=== PATIENT | male | born 1970 | race African-American/Black ===

== ENCOUNTER → 2018-10-01 10:52 | Outpatient (CLI) | payer MEDICARE, SELFPAY ==
[2018-09-28 11:18] VITALS: BMI 31.8
[2018-10-01 11:37] LABS: Absolute Lymphocyte Count 1.18 X10^3/ul (0.83-4.51); Absolute Neutrophil Count 2.1 X10^3/uL (2.0-7.7); Basophil# 0.01 X10^3/uL; Basophil% 0.3 % (0-1); Eosinophil# 0.14 X10^3/uL; Eosinophils% 3.6 % (0-5); Hematocrit 44.2 % (40-54); Hemoglobin 14.3 g/dl (13.0-16.5); Lymphocyte # 1.18 X10^3/ul (4.0); Lymphocyte % 30.2 % (19-41); Mean Corp Hgb Conc 32.4 g/gl (32-36); Mean Corpuscular Hgb 27.9 pg (27.0-32.0); Mean Corpuscular Volume 86.2 fL (80-94); Mean Platelet Vol. 12.4 fl (6.2-12.0); Monocyte% 12.8 % (0-10); Neutrophil # 2.08 X10^3/uL (2.7-7.7); Neutrophil % 53.1 % (47-70); Platelet Count 143 K/mm3 (150-450); RBC Distribution Width CV 13.3 % (11.6-14.6); RBC Distribution Width SD 42.2 fl (35.1-43.9); Red Blood Count 5.13 M/mm3 (4.6-6.2); White Blood Count 3.9 K/mm3 (4.4-11.0)
[2018-10-01 11:38] LABS: POSITIVE COUNT NO; POSITIVE DIFFERENTIAL NO; POSITIVE MORPHOLOGY NO
[2018-10-01 12:04] LABS: AST(SGOT) 15 U/L (15-37); Alanine Aminotransfer ALT/SGPT 21 U/L (16-61); Albumin, Serum 3.8 g/dL (3.2-5.0); Alkaline Phosphatase 63 U/L (45-117); Anion Gap 8 (5-15); BUN 20 mg/dL (7-18); Calcium,Total 8.1 mg/dL (8.5-10.1); Chloride 111 mmol/L (98-107); Cholesterol 172 mg/dL (200); Creatinine, Serum 1.05 mg/dL (0.70-1.30); EST Glomerular Filtration Rate 81 mL/min (>60); Est Glom Filt Rate - Afr Amer 98 mL/min (>60); Globulin 3.9 g/dL (2.2-4.2); Glucose 88 mg/dL (74-106); High Density Lipoprotein 44 mg/dL; Potassium 4.3 mmol/L (3.5-5.1); Protein, Total 7.7 g/dL (6.4-8.2); Sodium Level 143 mmol/L (136-145); Triglycerides 98 mg/dL; Very Low Density Lipoprotein 20 mg/dL (5-40)
--- OUTSIDE RECORDS SUMMARY | 2019-01-03 00:11 | XMS RPT_ITS ---
:1970 Author Organization OH[facility] Care Team Providers Name Role Phone Oleghe, Efewongbe Attending Unavailable Oleghe, Efewongbe Referring Unavailable Oleghe, Efewongbe Attending Unavailable Oleghe, Efewongbe Referring Unavailable Oleghe, Efewongbe Primary Care Unavailable Miguel Graf BLOCK MAKING MACHINE OPERATOR-C Attending Unavailable Oleghe, Efewongbe Referring Unavailable PROBLEMS PROBLEMS DATE TYPE CONDITION / CODE ATTENDING STATUS SOURCE 09/28/2018 Unknown R56.9 - Oleghe, Active [place] Unspecified ewongbe Formerly [facility] convulsions / Hospital R56.9(ICD-10) Repository 09/28/2018 Unknown E66.9 - Obesity, Oleghe, Active [place] unspecified / Efewongbe Formerly [facility] E66.9(ICD-10) Hospital Repository 09/28/2018 Unknown R51 - Headache / Oleghe, Active [place] R51(ICD-10) [facility] Hospital Repository PROCEDURES PROCEDURES No Procedure Records FoundRESULTS RESULTS INTERNAL MEDICINE Observed: 10/30/2018 Status: F Source: [place] OFFICE VISIT 11:23 AM [facility] REPOSITORY [facility] [address] [place] [address] [place] [address] OFFICE VISIT Date of Service: 10/30/18 MR#: [id number] Acct: [id number] Name: BRYNN TAYLOR Rep #: [id number] : 1970 Provider: Miguel Graf NP Age/Sex: 48/M Location: [facility] Status: Signed Intake Vital Signs10/30/18 Body Mass Index (BMI) 31.8 10/30/18 Height 5 ft 11.5 in Intake Visit Reasons: 1 M FU, PT R/S FROM 10/26/18 Chief Complaint: f/u visit Is patient in pain?: No Allergies No Known Allergies Allergy (Verified 09/28/18 11:13) Medications sumatriptan 25 mg tablet See Rx Instructions PO .COMPLEX #9 tab 09/28/18 [Rx Confirmed 09/28/18] tizanidine 2 mg capsule 2 mg PO TID PRN #30 cap 09/28/18 [Rx Confirmed 09/28/18] benzonatate 100 mg capsule 100 mg PO TID PRN #20 cap 10/30/18 [Rx Confirmed 10/30/18] codeine 10 mg-guaifenesin 100 mg/5 mL oral liquid See Rx Instructions PO Q6H PRN #120 ml 10/30/18 [Rx Confirmed 10/30/18] fluticasone 50 mcg/actuation nasal spray,suspension 2 spray INTRANASAL DAILY #15.8 g 10/30/18 [Rx Confirmed 10/30/18] nicotine 14 mg/24 hr daily transdermal patch 14 mg TRANSDERMAL QDAY #42 patch 10/30/18 [Rx Confirmed 10/30/18] nicotine 7 mg/24 hr daily transdermal patch 1 patch TRANSDERMAL Q24H #14 patch 10/30/18 [Rx Confirmed 10/30/18] PFSH Medical History Sleep apnea (Chronic) Seizures (Chronic) Chronic headaches (Chronic) Surgical History History of hand surgery (Acute) History of right knee surgery (Acute) Family History Father Sudden cardiac Mother Breast cancer Sister Kidney disease Social History Smoking Status: Current some day smoker alcohol intake: never substance use type: does not use what type of physical activity do you participate in: walking frequency: daily duration: > 90 minutes/day HPI HPI Chief Complaint: f/u visit Details: BRYNN TAYLOR, is a 48 M who presents to the office today for follow-up of his blood work and his chronic back pain, however he has some acute concerns of cold-like symptoms. He has a past medical history as listed above. The patient states that since his last office visit when he was started on the tizanidine for his chronic back pain, that this has helped and that he is tolerating the medication well. He states that his pain is controlled at this time. He has a 1/2 pack/day smoker times 20 years and is interested in smoking cessation. He has tried cold turkey in the past without much luck. He does bring up acute concerns of productive cough of yellow sputum, and nasal congestion. The symptoms have been going on for approximately 4 days and have been persisting. He has taken [id number] cough drops with mild relief. Denies any exposure to sick contacts. Denies any other aggravating or relieving factors. He otherwise denies any fever, chills, nausea, vomiting, shortness of breath, chest pain or pressure, syncope or presyncopal episodes. ROS Const Constitutional: No weight change, body ache, chills, fatigue, sleep problems, fever(s), change in appetite, snoring, weakness, frequent falls, headache(s) or excessive sweating Eyes Eyes: No change in vision, eye pain, light sensitivity or blurry vision ENT ENT: Positive for nasal congestion and nasal discharge; no headache(s), abnormal hearing, ear pain, tinnitus, sore throat or neck pain Resp Respiratory: Positive for cough Cough: Yes productive; no snoring, shortness of breath or wheezing Cardio Cardiology: No excessive sweating, chest pain at rest, chest pain with exertion, shortness of breath, dyspnea on exertion, palpitations, orthopnea or lightheadedness Gastro GI: No abdominal pain, change in bowel habits, constipation, diarrhea, vomiting, nausea/dyspepsia or cramping Genitourinary Male: No painful urination, urinary incontinence, urinary frequency, urinary urgency, blood in urine, testicle pain or other Musc Musculoskeletal: No neck pain, abnormal walking, joint pain, back pain, limited range of motion, numbness or tingling Skin Skin: No redness, dry skin, itching, lesions, wounds or rash Neuro Neurology: No weakness, frequent falls, headache(s), abnormal hearing, abnormal walking, numbness, tingling, abnormal speech, dizziness or memory loss Psych Psychiatric: No change in appetite, No memory loss, No anxiety, No depression, No Thoughts of harming yourself/Others Endo Endocrine: No fatigue, excessive sweating, cold intolerance, increased thirst/drinking, heat intolerance, flushing or increased hunger Aller/Imm Allergy/Immunologic: No wheezing, itchy eyes, hives or seasonal allergy symptoms Thomas/Lymp Hematologic/Lymphatic: No easy bleeding, easy bruising or enlarged lymph nodes Exam Const General: cooperative, no acute distress Orientation: alert, awake, oriented x3 HENMT Head: atraumatic, normocephalic, normal to inspection Ears: hearing grossly normal bilaterally, TM's normal bilaterally Nose: external nose normal, mucous membranes and turbinates abnormal (edematous bilaterally) pale, nasal discharge clear bilaterally Face and sinus: normal facial exam Mouth: oral mucosae normal Throat: posterior oropharynx normal Neck Neck: no lymphadenopathy Resp Effort AND Inspection: normal respiratory effort, able to speak in complete sentences Auscultation: Bilateral: Clear to Auscultation Cardio Rate: regular rate Rhythm: regular rhythm Heart Sounds: S1 normal, S2 normal GI Palpation: soft, no hepatosplenomegaly Musc Thoracic/Lumbar Spine: straight leg raise negative bilaterally, paraspinal tenderness Neuro General: awake, alert, oriented x3, moves all extremities, CN's II-XI intact bilaterally Psych Appearance: grossly normal Mood: congruent mood Affect: normal affect Office Procedures Smoking Cessation Smoking Cessation A 6 minute, face to face discussion occurred with the patient regarding smoking cessation. Risks of continued tobacco abuse was covered such as heart disease, stroke, cancer, and emphysema, among others. The many health benefits quitting, was discussed and the patient was educated on the fact that smokers lose an average of 10 minutes of life for every cigarette smoked. We discussed the pathophysiology of smoking addiction and its dual addictive components of nicotine addiction and psychological addiction. Nicotine replacement was discussed. We also talked about medications that may be helpful such as Bupropion (Wellbutrin) or Varenicline (Chantix). Advise was also offered on preoccupying the mind during trigger times with activities such as chewing gum, sucking on hard candy or utilizing their hands with an activity such as drawing. Currently the patient is smoking 1/2 ppd. At this time, BRYNN elects to trial the nicotine replacement patch. We will continue to monitor the tobacco abuse and encourage cessation. You may call the free hotline 7-460-OPYT-NOW. People who use this line are THREE times more likely to remain smoke free. Time Spent 3-10 minutes: Yes greater than 10 minutes: No Assessment AND Plan 1. URI (upper respiratory infection) J06.9 Plan Symptoms seem to be viral in nature at this time. Will treat supportively. Ailyn called in the be taken during the day for cough and cough syrup with codeine to be taken as needed at night, since his cough is keeping him awake at night. Discussed not to drive while on the medication or to mix this with his muscle relaxant. OARRS was verified and demonstrates no red flags that would indicate abuse or diversion. Flonase was also called to his pharmacy as well. Educated on rest, increasing fluids, and hand hygiene 2. Chronic back pain M54.9; G89.29 Plan Said to have improved since starting the tizanidine. If worsens in the future may need a physical therapy referral. 3. Tobacco abuse Z72.0 Plan See above procedure note, patient was started on the nicotine replacement patch. Instructed not to smoke while on the patch. Educated on red flag signs and symptoms of nicotine toxicity that require urgent medical attention. Patient verbalized understanding. Davidon disclaimer Plan Detail Other Medications New: fluticasone 50 mcg/actuation (Flonase Allergy Re2 sprays Intranasal DAILY 15.8 grams 1RF lief) administer into each nostril Follow Up 2 months or sooner if need Coding Level of Care Code Off vis,est,level 3 Diagnoses URI (upper respiratory infection) J06.9 Chronic back pain M54.9; G89.29 Tobacco abuse Z72.0 Additional Codes Time Spent - 3-10 minutes: Yes (87277) 10/30/18 1123 <Electronically signed by Miguel SINGH> Date Migule SINGH Cosigner Signature: Date (if applicable) CC: INTERNAL MEDICINE Observed: 10/03/2018 Status: F Source: [place] OFFICE VISIT 4:59 PM [facility] [address] [place] [address] [place] [address] OFFICE VISIT Date of Service: 09/28/18 MR#: [id number] Acct: [id number] Name: BRYNN TAYLOR Rep #: [id number] : 1970 Provider: Gretta Perez MD Age/Sex: 48/M Location: [facility] Status: Signed Intake Vital Signs09/28/18 Height 5 ft 11.5 in 09/28/18 Weight: 232 lb 09/28/18 Body Mass Index (BMI) 31.8 09/28/18 Blood Pressure 116/77 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 Chief Complaint: Est Care - Check up Allergies No Known Allergies Allergy (Verified 09/28/18 11:13) Medications sumatriptan 25 mg tablet See Rx Instructions PO .COMPLEX #9 tab 09/28/18 [Rx Confirmed 09/28/18] tizanidine 2 mg capsule 2 mg PO TID PRN #30 cap 09/28/18 [Rx Confirmed 09/28/18] PFSH Medical History Seizures (Chronic) Chronic headaches (Chronic) Surgical History History of hand surgery (Acute) History of right knee surgery (Acute) Family History Father Sudden cardiac Mother Breast cancer Sister Kidney disease Social History Smoking Status: Current some day smoker alcohol intake: never substance use type: does not use what type of physical activity do you participate in: walking frequency: daily duration: > 90 minutes/day HPI HPI Chief Complaint: Est Care - Check up Details: BRYNN TAYLOR, is a 48yo M who presents to the office today to establish care. Poor historian and not very clear on his past medical history however, it appears he has chronic history of seizures with last episode being about 2 years ago and chronic/recurrent headaches for which he has been hospitalized on several occasions. He also reports a history of chronic back pain for which he was also hospitalized at [facility]. His main concerns at this time is his chronic headaches and back pain. Headaches are said to be sharp, one-sided and could linger for as long as 3-4 days. Worsened by light and sound. Again he is not clear about prior prescriptions but appears that he was prescribed triptan's in the past. No significant response with Tylenol or ibuprofen. Also reports chronic back pain and appears to have had a flareup lately. No change in bowel or bladder habit. No falls. ROS Const Constitutional: Positive for headache(s) (Severe - lasts several days); no chills, fatigue, fever(s), frequent falls, malaise, weakness, sleep problems or change in appetite Eyes Eyes: No blurry vision, change in vision, double vision, discharge or visual disturbances ENT ENT: Positive for headache(s) (Severe - lasts several days); no abnormal hearing, ear pain, ear pressure, tinnitus or dizziness/vertigo Resp Respiratory: No shortness of breath or wheezing Cardio Cardiology: No chest pain at rest, chest pain with exertion, shortness of breath, dyspnea on exertion, generalized swelling, irregular heart rhythm, lightheadedness, orthopnea, fast heart rate or palpitations Gastro GI: No abdominal pain, change in bowel habits, constipation, diarrhea, nausea/dyspepsia or vomiting Genitourinary Male: No difficulty urinating, burning urination, painful urination, urinary incontinence, urinary frequency, urinary urgency, urinary hesitancy, urinary retention, blood in urine, Frequent nighttime urination/ nocturia, sexual problems, testicle lump or testicle pain Musc Musculoskeletal: Positive for back pain; no joint swelling, limited range of motion, numbness or tingling Skin Skin: No change in skin color, itching, rash or wounds Breast Breast: No breast lump or breast pain Neuro Neurology: Positive for headache(s) (Severe - lasts several days); no frequent falls, weakness, abnormal hearing, numbness, tingling, unsteady gait/balance, dizziness, loss of vision, memory loss or visual disturbances Psych Psychiatric: No memory loss, No anxiety, No change in appetite, No depression, No Thoughts of harming yourself/Others Endo Endocrine: No fatigue, heat intolerance, increased thirst/drinking, increased hunger or increased urination Aller/Imm Allergy/Immunologic: No wheezing, itchy eyes or seasonal allergy symptoms Thomas/Lymp Hematologic/Lymphatic: No easy bleeding, easy bruising or enlarged lymph nodes Exam Const General: cooperative, no acute distress Orientation: alert, awake, oriented x3 HENMT Head: atraumatic, normocephalic Ears: hearing grossly normal bilaterally Resp Effort AND Inspection: normal respiratory effort, able to speak in complete sentences Auscultation: Bilateral: Clear to Auscultation Cardio Rate: regular rate Rhythm: regular rhythm Heart Sounds: S1 normal, S2 normal GI Palpation: soft, no hepatosplenomegaly Musc Thoracic/Lumbar Spine: straight leg raise negative bilaterally, paraspinal tenderness Neuro General: awake, alert, oriented x3, moves all extremities, CN's II-XI intact bilaterally Psych Appearance: grossly normal Mood: congruent mood Affect: normal affect Assessment AND Plan 1. Chronic headaches R51 Plan Appears to have had worsening episodes lately. Might benefit from migraine prophylaxis however will obtain records from [facility]. Continue NSAIDs as needed. Prescription for sumatriptan sent. Follow-up in 1 month. Orders Orders: 2. Chronic back pain M54.9; G89.29 Plan Acute on chronic. Paraspinal muscle tenderness. Prescription for tizanidine sent. If no significant improvement at next visit, will refer to physical therapy. 3. Seizures R56.9 Plan Per patient, his last episode was 2 years ago. Unclear about history. Records requested. Orders Orders: 4. Obesity (BMI 30.0-34.9) E66.9 Plan Lipid profile ordered. Lifestyle and dietary modifications recommended. Readdress at next visit. This note was generated with Kanmu dictation software. It may contain incorrect words, spelling, and punctuation that were not noted in checking the note before signing. Orders Orders: Plan Detail Other Medications New: sumatriptan take 1 tab at onset of headache; if no relief may repeat 1 tab in 2hr; max = 4 tabs/day (24hr) PO 9 tabs 0RF Coding Level of Care Code Off vis,new,level 4 Diagnoses Chronic headaches R51 Chronic back pain M54.9; G89.29 Seizures R56.9 Obesity (BMI 30.0-34.9) E66.9 10/03/18 4315 <Electronically signed by Gretta Perez MD> Date Gretta Perez MD Cosigner Signature: Date (if applicable) CC: CBC W/DIFF, AUTOMATED Collected: 10/01/2018 Status: F Source: [place] 11:03 AM [facility] REPOSITORY TYPE CODE TESTS RESULT OUT OF RANGE REFERENCE UNITS LAB L100.1000 4.4-11.0 K/mm3 Low WBC 3.9 LAB L100.1200 4.6-6.2 M/mm3 Normal RBC 5.13 LAB L100.1300 13.0-16.5 g/dl Normal HGB 14.3 LAB L100.1400 40-54 % Normal HCT 44.2 LAB L100.1500 80-94 fL Normal MCV 86.2 LAB L100.1600 27.0-32.0 pg Normal MCH 27.9 LAB L100.1700 32-36 g/gl Normal MCHC 32.4 LAB L100.1810 11.6-14.6 % Normal RDW CV 13.3 LAB L100.1820 35.1-43.9 fl Normal RDW SD 42.2 LAB L100.1900 150-450 K/mm3 Low PLT 143 LAB L100.2000 6.2-12.0 fl High MPV 12.4 LAB L100.2100 47-70 % Normal NEUT% 53.1 LAB L100.2200 19-41 % Normal LY% 30.2 LAB L100.2300 0-10 % High MONO% 12.8 LAB L100.2400 0-5 % Normal EO% 3.6 LAB L100.2500 0-1 % Normal BASO% 0.3 LAB L100.2550 0.0-0.9 % Normal IM GRAN % 0.000 Result Comment: IG% - Immature Granulocytes (promyelocytes, myelocytes and metamyelocytes) > 1% indicates that a LEFT SHIFT is Present. LAB L100.2620 2.0-7.7 X10 3/uL Normal Absolute Neut 2.1 LAB L100.2720 0.83-4.51 X10 3/ul Normal Absolute Lymph 1.18 Performed By: #### L100.0100 #### [place] [facility] [address] [place], [address] COMPREHENSIVE METABOLIC Collected: 10/01/2018 Status: F Source: [place] [facility] 11:03 AM [facility] REPOSITORY Order Comment: Comments: Fasting Comments: Fasting TYPE CODE TESTS RESULT OUT OF RANGE REFERENCE UNITS LAB L501.0100 74-106 mg/dL Normal GLU 88 Result Comment: Please note revised GLUCOSE reference range effective 2017. LAB L501.1000 7-18 mg/dL High BUN 20 LAB L501.1100 0.70-1.30 mg/dL Normal CREAT,SERUM 1.05 Result Comment: The validity of the calculated GFR AND GFRAA in patients over 70 years has not been determined. Clinical correlation is essential. LAB L501.1110 >60 mL/min Normal EST GFR 81 Result Comment: Non- GFR Calc LAB L501.1115 >60 mL/min Normal EST GFR - AA 98 Result Comment: GFR Calc LAB L501.1300 10-20 RATIO Normal BUN/CRE 19.0 LAB L501.1500 6.4-8.2 g/dL T Normal PROT 7.7 LAB L501.1800 3.2-5.0 g/dL Normal ALB 3.8 LAB L501.1950 2.2-4.2 g/dL Normal GLOB 3.9 LAB L501.2000 0.9-2.4 RATIO Normal A/G 1.0 LAB L501.2200 8.5-10.1 mg/dL Low CA 8.1 LAB L501.4100 15-37 U/L Normal AST 15 LAB L501.4305 45-117 U/L Normal ALK P 63 LAB L501.4405 16-61 U/L Normal ALT 21 LAB L501.4600 0.20-1.00 mg/dL T Normal BILI 0.20 LAB L501.5300 136-145 mmol/L NA Normal 143 LAB L501.5600 3.5-5.1 mmol/L K Normal 4.3 LAB L501.5900 98-107 mmol/L High CL 111 LAB L501.6100 21.0-32.0 mmol/L Normal CO2 24.0 LAB L501.6200 5-15 Normal GAP 8 Performed By: #### L500.4050, L500.4100 #### [facility] [address] [place], [address] LIPID PROFILE Collected: 10/01/2018 Status: F Source: [place] 11:03 AM [facility] REPOSITORY Order Comment: Comments: Fasting Comments: Fasting TYPE CODE TESTS RESULT OUT OF RANGE REFERENCE UNITS LAB L501.4900 200 mg/dL Normal CHOL 172 Result Comment: <200 mg/dL Desirable 200-240 mg/dL Borderline >240 mg/dL High Risk LAB L501.5000 mg/dL Normal TRIG 98 Result Comment: The drugs N-Acetylcysteine and Metamizole may falsely depress this assay. Serum Triglycerides Reference Interval Normal <150 mg/dL Borderline high 150 - 199 mg/dL High 200 - 499 mg/dL Very High > or = 500 mg/dL LAB L501.6400 mg/dL Normal HDL 44 Result Comment: The drugs N-Acetylcysteine and Metamizole may falsely depress this assay. Reference Range HDL <40 mg/dL Low HDL Cholesterol HDL >or= 60 mg/dL High HDL Cholesterol LAB L501.6500 0-130 mg/dL Normal LDL 108 LAB L501.6600 5-40 mg/dL Normal VLDL 20 Performed By: #### L500.4050, L500.4100 #### [facility] [address] [place], [address] ALLERGIES ALLERGIES DATE TYPE / CODE NAME / CODE REACTION SEVERITY SOURCE 09/28/2018 Drug No Known Unknown [facility] Allergy/4160 Allergies/F00 Hospital 67502(SNOMED [id number](RXNOR Repository CT) M) ENCOUNTERS ENCOUNTERS ADMIT/DISCHARGE ACCOUNT ADMITTING ENCOUNTER LOCATION SOURCE NUMBER CLASS 10/30/2018/ [id number] Ambulatory BMSBuilding:B [place] 9 6 [facility] Repository 10/01/2018 [id number] Ambulatory [place] 5 [facility] ing:LAB Repository 09/28/2018/ [id number] Ambulatory BMSBuilding:B [place] 8 0 [facility] Repository PAYERS PAYERS ENCOUNTER GUARANTOR PAYER SUBSCRIBER SOURCE 10/30/2018 BRYNN Heath Primary BRYNN [place] [id number] Insurance:MEDICARE OCHELATADOB: [facility] PART A [id number] Number: Repository [id number]: 330 [id number] [phone] () Date:2018-09-28 10/30/2018 Secondary NOT GIVENUNK [place] Insurance:SELF PAY [facility] Number: Effective Repository Date:2018-10-18 10/01/2018 BRYNN L Primary BRYNN L [place] [id number] Insurance:MEDICARE PALMERDOB: Community [place] PART A [facility] [id number] Number: Repository [address]Fhq: 330 [id number] [phone] () Date:2018-10-01 10/01/2018 Secondary NOT GIVENUNK [place] Insurance:SELF PAY [facility] Number: Effective Repository Date:2018-10-01 09/28/2018 BRYNN L Primary BRYNN L [place] [id number] Insurance:MEDICARE PALMERDOB: Community [place]GA [place] PART A [facility] [id number] Number: Repository [id number]: 330 [id number] [phone] () Date:2018-08-28 09/28/2018 Secondary NOT GIVENUNK [place] Insurance:SELF PAY [facility] Number: Effective Repository Date:2018-09-27
== END ==
PROVIDERS: Family Provider Internal Medicine; PCP Internal Medicine; Referring Provider Internal Medicine; Visit Provider Internal Medicine
DX: R56.9 Unspecified convulsions (principal); R51 Headache; G89.29 Other chronic pain; E66.9 Obesity, unspecified
CPT/HCPCS: 36415; 80053; 80061; 85025

== ENCOUNTER → 2019-11-15 06:25 | Outpatient (CLI) | payer MEDICARE, SELFPAY ==
[2019-11-05 14:05] VITALS: BMI 31.8
--- NOTE | 2019-11-15 06:29 | MRI_ITS ---
STUDY: MRI BRAIN WITH AND WITHOUT CONTRAST REASON FOR EXAM: Male, 49 years old. worsening daily headaches, no relief with medication PT VOMITED AFTER INJECTION TECHNIQUE: Standardized multiplanar fat and water weighted pulse sequences were obtained. IV 23cc dotarem was administered for the contrast portion of the examination. COMPARISON: None. FINDINGS: Normal size of the ventricles and extra-axial spaces for the patient''s age. Normal white matter tracts of the supratentorial brain. There is no evidence for recent intracranial ischemia or other cause of cytotoxic edema on diffusion weighted imaging (DWI). Normal T2* images of the brain without demonstrated susceptibility artifact. There is no demonstrated hemosiderin stain. There are no demyelinating plagues of the supratentorial brain, brainstem or cerebellum. There are no findings suspicious for multiple sclerosis (MS). No demonstrated hydrocephalus. No midline shift. Normal bilateral basal ganglia. Normal thalami. There is no extra-axial fluid accumulation. Normal flow voids within the major intracranial circulation suggesting patency by spin echo criteria. Normal venous enhancement. There is no enhancing intra-axial or extra-axial abnormality. Normal sella turcica, pituitary gland, infundibular stalk, optic chiasm and hypothalamus. Normal tectal plate and pineal gland. Normal midbrain, natalio and medulla. Normal cerebellum. Normal basal cisterns. Normal bilateral temporal bones. Normal bilateral internal auditory canals. No demonstrated orbital abnormality, within the constraints of a routine brain study. There is mild mucosal thickening in the bilateral frontal and ethmoid sinuses. Normal calvarium and skull base. Normal visualized soft tissue structures. Normal visualized upper cervical spine. MRI/Brain W/WO Contrast IMPRESSION: 1. Normal unenhanced and enhanced MRI of the brain. 2. Mild mucosal thickening of the bilateral frontal and ethmoid sinuses. Electronically Signed: Reilly Voss MD at 19:07 EST , Service support ,
== END ==
LOC: MRI 06:29
PROVIDERS: PCP Internal Medicine; Referring Provider Internal Medicine; Visit Provider Internal Medicine
DX: G43.909 Migraine, unspecified, not intractable, without status migrainosus (principal)
CPT/HCPCS: 70553

== ENCOUNTER → 2019-11-22 11:15 | Outpatient (CLI) | payer MEDICARE, SELFPAY ==
[2019-11-21 13:58] VITALS: BMI 34.4
[2019-11-22 11:41] LABS: Hematocrit 44.9 % (40-54); Hemoglobin 14.5 g/dL (13.0-16.5); Mean Corp Hgb Conc 32.3 g/dL (32-36); Mean Corpuscular Hgb 27.8 pg (27.0-32.0); Mean Platelet Vol. 12.2 fl (6.2-12.0); Platelet Count 165 K/mm3 (150-450); RBC Distribution Width CV 13.1 % (11.6-14.6); RBC Distribution Width SD 40.5 fl (35.1-43.9); Red Blood Count 5.22 M/mm3 (4.6-6.2); White Blood Count 4.8 K/mm3 (4.4-11.0)
[2019-11-22 12:31] LABS: ALB/GLOB Ratio 1.1 RATIO (0.9-2.4); AST(SGOT) 16 U/L (15-37); Alanine Aminotransfer ALT/SGPT 26 U/L (16-61); Albumin, Serum 4.1 g/dL (3.2-5.0); Alkaline Phosphatase 77 U/L (45-117); Anion Gap 6 (5-15); BUN 17 mg/dL (7-18); BUN/Creat Ratio 13.5 RATIO (10-20); Calcium,Total 8.7 mg/dL (8.5-10.1); Chloride 111 mmol/L (98-107); Creatinine, Serum 1.26 mg/dL (0.70-1.30); EST Glomerular Filtration Rate 65 mL/min (>60); Est Glom Filt Rate - Afr Amer 79 mL/min (>60); Globulin 3.9 g/dL (2.2-4.2); Glucose 94 mg/dL (74-106); Potassium 3.8 mmol/L (3.5-5.1); Sodium Level 139 mmol/L (136-145); Thyroid Stim Hormone (TSH) 1.08 uIU/mL (0.358-3.74)
== END ==
PROVIDERS: PCP Internal Medicine; Referring Provider Psychiatry & Neurology Neurology; Visit Provider Psychiatry & Neurology Neurology
DX: G43.909 Migraine, unspecified, not intractable, without status migrainosus (principal); R53.83 Other fatigue
CPT/HCPCS: 36415; 80053; 84443; 85027

== ENCOUNTER → 2019-12-18 06:49 | Outpatient (CLI) | payer MEDICARE, SELFPAY ==
[2019-12-05 13:46] VITALS: BMI 34.4
--- NOTE | 2019-12-18 13:25 | STRESSREP ---
Stress Test Report Date: 12/18/2019 Procedure: Exercise tolerance test/imaging study Indications: Chest pain, family history of CAD Consent: Per the patient Procedure: The patient exercised on a Silas protocol for 9 minutes achieving a peak heart rate of 166 bpm (95 % predicted maximal heart rate) with a peak blood pressure 170/74 mmHg and a peak MET capacity of 10.1 METs. The baseline ECG demonstrated normal sinus rhythm. The peak exercise ECG demonstrated no significant ischemic changes. EKG during recovery revealed no significant ischemic changes [There were no difficult cardiac dysrhythmias pretest, during exercise, or recovery]. Patient had occasional PVCs. The functional capacity was considered normal for age. Patient had 5/10 chest pain at rest that did not change with exertion. The examination was discontinued secondary to achieving target heart rate. Impression: 1. Technically adequate (percent predicted maximal heart rate greater than 85%) exercise tolerance test 2. Stress test is negative for exercise-induced EKG changes of ischemia 3. The test test is negative for exercise-induced chest pain. He had 5/10 chest pain at baseline that did not change with exercise. 4. Functional capacity is normal for age 5. Nuclear images pending Myocardial perfusion imaging study: Technique: The patient was injected with 11.1 mCi of technetium 99m Cardiolite and subsequently rest SPECT Cardiolite nuclear imaging was obtained in the horizontal long, vertical long, and short axis views. The patient exercised on a Silas protocol. Please see above for details. The patient was injected with 33.9 mCi of technetium 99m Cardiolite and subsequently stress SPECT Cardiolite nuclear imaging was obtained in the horizontal long, vertical long, and short axis views. A gated Cardiolite study at peak stress was obtained. Interpretation: Rest and stress SPECT Cardiolite nuclear imaging status post realignment, normalization, and attenuation correction, demonstrates overall normal myocardial radioisotope uptake. The gated Cardiolite study demonstrates no significant regional wall motion abnormalities. The reported LVEF is 56 %. Impression: 1. There is no evidence of significant ischemia or infarction. 2. The gated Cardiolite study reports an LVEF of 56 %. This note was generated with [employer] software. It may contain incorrect words, spelling, and punctuation that were not noted in checking the note before signing.
== END ==
LOC: CVS 06:50
PROVIDERS: PCP Internal Medicine; Referring Provider Internal Medicine; Visit Provider Internal Medicine
DX: R07.9 Chest pain, unspecified (principal); R94.31 Abnormal electrocardiogram [ECG] [EKG]; Z82.49 Family history of ischemic heart disease and other diseases of the circulatory system
CPT/HCPCS: 78452; 93017; A9500; A4216

== ENCOUNTER → 2020-04-06 20:00 | Outpatient (CLI) | payer MEDICARE, SELFPAY ==
[2020-03-13 09:56] VITALS: BMI 31.8
== END ==
PROVIDERS: PCP Internal Medicine; Visit Provider Internal Medicine
DX: G47.33 Obstructive sleep apnea (adult) (pediatric) (principal)
CPT/HCPCS: 95810

== ENCOUNTER 2021-06-30 12:42 | Emergency (ER) | payer SELFPAY ==
[2021-06-30 12:46] VITALS: BP 121/85; PULSE 75; RESP 16; TEMP 36.3; O2SAT 97; BMI 34.6
== END 2021-06-30 16:05 | disposition left against medical advice (07) ==
LOC: ED 16:05
PROVIDERS: PCP Internal Medicine
DX: R69 Illness, unspecified (principal); Z53.21 Procedure and treatment not carried out due to patient leaving prior to being seen by health care provider

== ENCOUNTER 2022-01-08 13:04 | Emergency (ER) | payer SELFPAY ==
[2022-01-08 13:06] VITALS: BP 139/76; PULSE 69; RESP 14; TEMP 35.7; O2SAT 100; BMI 37.8
--- NOTE | 2022-01-08 13:33 | EX.ED.DYSGE1 ---
HPI History of Present Illness Chief Complaint: Nausea/Vomiting Detail of Chief Complaint: Vomiting and hematemesis Informant: patient Narrative Narrative: Patient presents to the emergency department with vomiting that started this morning. Patient states that he vomited about half hour after waking up and then vomited a second time. Patient drank some orange juice and 20 minutes later vomited again and there was small amount of blood within the vomitus. He complains of some abdominal discomfort. Patient states he had about 4 episodes of watery diarrhea yesterday. He denies sick contacts. He denies fever. Patient also states that he has a pressure sensation in his right ear with a swishing sound that he hears at times. This started today. Prior similar symptoms: No [facility] Medical History (Updated 01/08/22 @ 15:[address] Erik Swain, ) Chronic headaches Seizures Sleep apnea Home Medications fluticasone propionate 50 mcg/actuation nasal spray,suspension 2 spray INTRANASAL DAILY #15.8 g 07/10/19 [Rx Last Taken Unknown] loratadine 10 mg tablet 10 mg PO DAILY PRN #90 tab 07/10/19 [Rx Last Taken Unknown] montelukast 10 mg tablet 10 mg PO QPM #90 tab 07/10/19 [Rx Last Taken Unknown] tizanidine 4 mg tablet See Rx Instructions PO QHS PRN #90 tab 11/21/19 [Rx Last Taken Unknown] sertraline 100 mg tablet 100 mg PO DAILY #90 tab 12/05/19 [Rx Last Taken Unknown] arm brace #1 ea 01/02/20 [Rx Last Taken Unknown] colchicine 0.6 mg capsule 0.6 mg PO BID 03/13/20 [History Last Taken Unknown] sumatriptan succinate 25 mg tablet See Rx Instructions PO .COMPLEX #9 tab 04/21/20 [Rx Last Taken Unknown] ibuprofen 800 mg tablet 800 mg PO TID PRN #90 tab 08/11/20 [Rx Last Taken Unknown] ondansetron HCl 4 mg tablet 4 mg PO TID PRN #90 tab 08/11/20 [Rx Last Taken Unknown] topiramate 50 mg tablet 50 mg PO BID #60 tab 08/11/20 [Rx Last Taken Unknown] ondansetron 4 mg PO Q8H PRN PRN #10 tab 01/08/22 [Rx Last Taken Unknown] Allergy/AdvReac Type Severity Reaction Status Date / Time Gadolinium-MRI Contrast AdvReac Vomiting Verified 01/08/22 13:06 Medium Family History Father Sudden cardiac Mother Breast cancer Sister Kidney disease Grandmother Alcoholism Other Cervical cancer Colon cancer Surgical History History of hand surgery History of right knee surgery Social History (Updated 08/11/20 @ 10:[address] Tristan Lozoya MD) Smoking Status: Current some day smoker tobacco type: cigarettes alcohol intake: never substance use type: does not use what type of physical activity do you participate in: walking frequency: daily duration: > 90 minutes/day ROS ROS ED Constitutional Constitutional ED: Reports systems reviewed and no addt'l complaints, except as documented; Denies body ache(s), change in weight or chills Eyes Eyes: Denies acute decrease in peripheral vision, change in vision, double vision or loss of vision ENT ENT ED: Reports none and ear pain; Denies lip swelling, loss taste/smell, neck pain, otalgia or sore throat Cardiovascular Cardiovascular: Reports none; Denies abdominal pain, chest pain with activity, leg edema, lightheadedness, palpitations, rapid heart rate or syncope Respiratory/Chest Respiratory/Chest: Reports none; Denies change in mental status, dry cough, dyspnea, hemoptysis, shortness of breath at rest or shortness of breath with exertion Gastrointestinal Gastrointestinal: Reports none, abdominal pain, diarrhea, nausea and vomiting; Denies change in stool character, hematemesis, hematochezia, melena or rectal bleeding Genitourinary Genitourinary ED: Reports none; Denies abdominal discomfort, anuria, dysuria, genital pain or polyuria Musculoskeletal Musculoskeletal: Reports none; Denies arthralgias, back pain, difficulty walking, extremity pain, muscle weakness or myalgias Integumentary Reports none; Denies abscess or rash Neurologic Neurologic: Reports none; Denies abnormal gait, confusion, focal weakness, frequent falls, headache(s), loss of vision, numbness, paresthesias, radicular pain, vertigo or weakness Psychiatric Psychiatric: Reports systems reviewed and no addt'l complaints, except as documented and none; Denies behavioral changes, confusion, difficulty concentrating, hallucinations, suicidal ideation, tactile hallucinations or visual hallucinations Endocrine Endocrinology: Denies none, cold intolerance, excessive sweating, fatigue or heat intolerance Hematologic/Lymphatic Hematologic/Lymphatic: Reports none; Denies anemia, easy bleeding or easy bruising Allergic/Immunologic Allergic/Immunologic ED: Denies as per HPI, none, lip swelling, mouth swelling, throat swelling, tongue swelling or hives EXAM Physical Exam Const Vital Signs: 01/08/22 13:06 Temperature 96.3 F L Temperature Source Temporal Pulse Rate 69 Respiratory Rate 14 Blood Pressure 139/76 H Blood Pressure Mean 97 Pulse Ox 100 Oxygen Delivery Method Room Air Positive well nourished and well developed General Appearance ED: well developed and NAD HEENT Reports TM's clear and moist mucous membranes normocephalic and atraumatic; Negative for trauma or tenderness Tympanic Membrane ED: Yes TM's clear Eyes PERRL and EOMs intact bilaterally General Eye ED: Negative for pale conjunctiva or scleral icterus Neck no lymphadenopathy, supple and no JVD General: Negative for tenderness Chest Wall inspection of chest normal and palpation of chest normal Chest: Negative for tenderness Resp normal respiratory effort and clear to auscultation bilaterally Effort and Inspection: Negative for respiratory distress or pain with movement Auscultation: Negative for rhonchi, wheezes or diminished lung sounds Cardio regular rate, regular rhythm, S1 normal heart sound, S2 normal heart sound and no murmurs Peripheral Pulses: pulses 2+ throughout GI normal to inspection, nondistended, normoactive bowel sounds, soft to palpation, non-distended and no masses GI Narrative: Normoactive bowel sounds. Mild diffuse tenderness. No rebound, rigidity, or peritoneal signs. Back/Spine no CVA tenderness and no thoracic nor lumbar tenderness Extremity normal to inspection General Extremety ED: Negative for edema General Extremity: Negative for edema Neuro oriented x3, CN's II-XII intact bilaterally, no sensory deficits noted and gait normal Sensorium / Orientation: awake, alert, oriented to person, oriented to place and oriented to time Motor Exam: strength 5/5 throughout and strength abnormal Psych mental status grossly normal Skin no rashes or lesions noted and no wounds MDM MDM MDM Narrative Medical decision making narrative: IV line established on arrival. Patient was given normal saline. He was given Zofran 4 mg IV. Lab work-up was essentially normal. At this point I suspect he likely has a viral gastroenteritis. Suspect he likely has a Gladis-Duckworth tear and he has had no further vomiting or hematemesis. Patient will be given a prescription for Zofran. Regarding the right ear I suspect he likely has a serous otitis and recommended using Claritin or Zyrtec [id number]. Patient advised to follow-up with his primary care physician within next 3 to 5 days. He is to return if persistent vomiting, hematemesis, lightheadedness, or condition should worsen anyway. Lab Data Attestation: I reviewed the patient's lab results. Labs: Laboratory Results - last 24 hr 01/08/22 01/08/22 13:53 13:53 WBC 4.6 RBC 5.05 Hgb 14.3 Hct 44.2 MCV 87.5 MCH 28.3 MCHC 32.4 RDW Std Deviation 43.8 RDW Coeff of Tomi 13.7 Plt Count 173 MPV 12.2 H Immature Gran % (Auto) 0.200 Neut % (Auto) 62.0 Lymph % (Auto) 23.4 Hardy % (Auto) 11.4 H Eos % (Auto) 2.6 Baso % (Auto) 0.4 Absolute Neuts (auto) 2.8 Absolute Lymphs (auto) 1.07 Nucleated RBC % 0 Sodium 140 Potassium 3.7 Chloride 110 H Carbon Dioxide 27.0 Anion Gap 3 L BUN 14 Creatinine 1.10 Estim Creat Clear Calc 88.18 Est GFR (MDRD) Af Amer 91 Est GFR (MDRD) Non-Af 75 BUN/Creatinine Ratio 12.7 Glucose 103 Calcium 8.3 L Total Bilirubin 0.20 AST 17 ALT 29 Alkaline Phosphatase 81 Total Protein 7.5 Albumin 3.6 Globulin 3.9 Albumin/Globulin Ratio 0.9 Lipase 103 Discharge Plan Triage Chief Complaint: Nausea/Vomiting ED Provider: Erik Swain Dx/Rx/DC Orders Clinical Impression: Viral gastroenteritis, Gladis-Duckworth tear, Acute serous otitis media Instructions: Gladis-Duckworth Tear, ED Earache Without Infection (Adult), ED Gastroenteritis, Viral (Adult) Prescriptions: New ondansetron [ondansetron] 4 MG tablet 4 mg PO Q8H PRN PRN (Reason: Nausea) Qty: 10 RF: 0 No Action fluticasone propionate [Flonase Allergy Relief] 50 mcg/actuation spray,suspension 2 spray Intranasal DAILY Qty: 15.8 RF: 1 montelukast [Singulair] 10 mg tablet 10 mg PO QPM Qty: 90 RF: 1 loratadine [Allergy Relief (loratadine)] 10 mg tablet 10 mg PO DAILY PRN (Reason: allergy symptoms) Qty: 90 RF: 1 sertraline 100 mg tablet 100 mg PO DAILY Qty: 90 RF: 3 tizanidine 4 mg tablet See Rx Instructions PO QHS PRN (Reason: muscle spasticity; insomnia) Qty: 90 RF: 2 (DME) Wrist Brace Misc See Rx Instructions .ROUTE .MEDSUPPLY Qty: 1 RF: 0 colchicine 0.6 mg capsule 0.6 mg PO BID RF: 0 ibuprofen 800 mg tablet 800 mg PO TID PRN (Reason: pain) Qty: 90 RF: 3 ondansetron HCl [Zofran] 4 mg tablet 4 mg PO TID PRN (Reason: nausea and vomiting) Qty: 90 RF: 3 topiramate 50 mg tablet 50 mg PO BID Qty: 60 RF: 4 sumatriptan succinate 25 mg tablet See Rx Instructions PO .COMPLEX Qty: 9 RF: 0 Primary Care Provider: Gretta Perez Referrals: Gretta Perez MD [Primary Care Provider] - Disposition Disposition: Home, Self Care
[2022-01-08 14:05] LABS: Absolute Lymphocyte Count 1.07 X10^3/uL (0.83-4.51); Absolute Neutrophil Count 2.8 X10^3/uL (2.0-7.7); Basophil# 0.02 X10^3/uL; Basophil% 0.4 % (0-1); Eosinophil# 0.12 X10^3/uL; Eosinophils% 2.6 % (0-5); Hematocrit 44.2 % (40-54); Hemoglobin 14.3 g/dL (13.0-16.5); Lymphocyte # 1.07 X10^3/ul (0.83-4.51); Lymphocyte % 23.4 % (19-41); Mean Corp Hgb Conc 32.4 g/dL (32-36); Mean Corpuscular Hgb 28.3 pg (27.0-32.0); Mean Corpuscular Volume 87.5 fL (80-94); Mean Platelet Vol. 12.2 fl (6.2-12.0); Monocyte# 0.52 X10^3/uL; Monocyte% 11.4 % (0-10); NRBC Flagged by Analyzer 0 % (0-5); Neutrophil # 2.84 X10^3/uL (2.7-7.7); Platelet Count 173 K/mm3 (150-450); RBC Distribution Width CV 13.7 % (11.6-14.6); RBC Distribution Width SD 43.8 fl (35.1-43.9); Red Blood Count 5.05 M/mm3 (4.6-6.2); White Blood Count 4.6 K/mm3 (4.4-11.0)
[2022-01-08 14:25] LABS: ALB/GLOB Ratio 0.9 RATIO (0.9-2.4); AST(SGOT) 17 U/L (15-37); Alanine Aminotransfer ALT/SGPT 29 U/L (16-61); Albumin, Serum 3.6 g/dL (3.2-5.0); Alkaline Phosphatase 81 U/L (45-117); Anion Gap 3 (5-15); BUN 14 mg/dL (7-18); BUN/Creat Ratio 12.7 RATIO (10-20); Calcium,Total 8.3 mg/dL (8.5-10.1); Chloride 110 mmol/L (98-107); EST Glomerular Filtration Rate 75 mL/min (>60); Est Glom Filt Rate - Afr Amer 91 mL/min (>60); Estimated Creatinine Clearance 88.18 ml/min; Globulin 3.9 g/dL (2.2-4.2); Glucose 103 mg/dL (74-106); Lipase 103 U/L (73-393); Potassium 3.7 mmol/L (3.5-5.1); Protein, Total 7.5 g/dL (6.4-8.2); Sodium Level 140 mmol/L (136-145)
[2022-01-08] MEDS: 0.9% Normal Saline 1,000 ML 1000 ML IV (14:49)
[2022-01-08] MEDS: Ondansetron 4 MG/2 ML Vial IV (14:50)
[2022-01-08] MEDS: Dicyclomine 20 MG/2 ML Vial IM (14:51)
[2022-01-08 16:10] VITALS: BP 134/78; PULSE 66; RESP 16; TEMP 36.9; O2SAT 98
== END 2022-01-08 16:10 | disposition home or self-care (01) ==
PROVIDERS: Emergency Provider Emergency Medicine; PCP Internal Medicine; Visit Provider Emergency Medicine
DX: A08.4 Viral intestinal infection, unspecified (principal); K22.6 Gastro-esophageal laceration-hemorrhage syndrome; H65.04 Acute serous otitis media, recurrent, right ear; F17.210 Nicotine dependence, cigarettes, uncomplicated
CPT/HCPCS: 80053; 83690; 85025; 96361; 96372; 96374; 99283; J7030; A4216; J2405

== ENCOUNTER 2022-04-27 17:28 | Emergency (ER) | payer OTHER, SELFPAY ==
[2022-04-27 17:29] VITALS: BP 146/86; PULSE 86; RESP 16; TEMP 36.3; O2SAT 97; BMI 34.5
--- NOTE | 2022-04-27 18:15 | EDS_ITS ---
HPI History of Present Illness Chief Complaint: Lower Extremity Injury Detail of Chief Complaint: Left proximal calf pain Informant: patient Occured/Mechanism Mechanism/Context: Yes injury Onset/Context/Timing Onset: Today and Hours Context: Sudden Onset Timing: Continuous Quality of Pain: Sharp Current Severity: Mild Maximum Severity: Mild Associated Symptoms Associated Symptoms: Negative for Parasthesia, Weakness or Loss of Funtion Narrative Narrative: 52-year-old male history of seizure disorder. States he was done with work he was walking and felt pain in his left proximal calf. Denies any fall or trauma. No prior history. He is able to move his foot. He is able to walk with discomfort. Prior similar symptoms: No Recent Illness/Hospitalization: No PFSH PFSH Medical History Chronic headaches Seizures Sleep apnea Home Medications loratadine 10 mg tablet (Allergy Relief (loratadine)) 10 mg PO DAILY PRN allergy symptoms #90 tabs 07/10/19 [Rx Last Taken Unknown] arm brace (Wrist Brace) #1 ea 01/02/20 [Rx Last Taken Unknown] colchicine 0.6 mg capsule 0.6 mg PO BID 03/13/20 [History Last Taken Unknown] sumatriptan succinate 25 mg tablet See Rx Instructions PO .COMPLEX #9 tabs 04/21/20 [Rx Last Taken Unknown] ibuprofen 800 mg tablet 800 mg PO TID PRN pain #90 tabs 08/11/20 [Rx Last Taken Unknown] topiramate 50 mg tablet 50 mg PO BID #60 tabs 08/11/20 [Rx Last Taken Unknown] Allergy/AdvReac Type Severity Reaction Status Date / Time Gadolinium-MRI Contrast AdvReac Vomiting Verified 04/27/22 17:29 Medium Family History Father Sudden cardiac Mother Breast cancer Sister Kidney disease Grandmother Alcoholism Other Cervical cancer Colon cancer Surgical History History of hand surgery History of right knee surgery Social History Smoking Status: Current some day smoker tobacco type: cigarettes alcohol intake: never substance use type: does not use what type of physical activity do you participate in: walking frequency: daily duration: > 90 minutes/day ROS ROS ED ROS Narrative Denies recent illness. Review of Systems ROS Unobtainable: Denies due to encephalopathy Constitutional Constitutional ED: Denies chills Eyes Eyes: Denies blurry vision ENT ENT ED: Denies ear pain Cardiovascular Cardiovascular: Denies chest pain Respiratory/Chest Respiratory/Chest: Denies cough Gastrointestinal Gastrointestinal: Denies abdominal pain Genitourinary Genitourinary ED: Denies dysuria Musculoskeletal Musculoskeletal: Denies arthralgias Integumentary Denies abscess Neurologic Neurologic: Denies headache(s) Psychiatric Psychiatric: Denies anxiety Endocrine Endocrinology: Denies polydipsia Hematologic/Lymphatic Hematologic/Lymphatic: Denies easy bleeding Allergic/Immunologic Allergic/Immunologic ED: Denies mouth swelling EXAM Physical Exam Narrative Exam Narrative: 52-year-old no acute distress HEENT exam normal. Neck nontender. Lungs are clear. Heart regular rhythm. Abdomen soft nontender. Obese. Moving all 4 ex tremities. Neurovascular intact. He has mild tenderness to his proximal left calf. There is no bony tenderness to the tib-fib. Normal DP pulse. He has normal dorsi plantarflexion of his right foot. Able to wiggle his toes. No bony deformity. The knee is nontender nonswollen. His Achilles tendon is intact. Exam is consistent with a left calf strain. There is no deformity consistent with a muscle tear. Const Vital Signs: 04/27/22 17:29 Temperature 97.3 F L Temperature Source Temporal Pulse Rate 86 Respiratory Rate 16 Blood Pressure 146/86 H Blood Pressure Mean 106 Pulse Ox 97 Oxygen Delivery Method Room Air Positive well nourished, well developed and obese; Negative for cachectic, contractures or unkempt General Appearance ED: well developed; Negative for unkempt, cachectic or contractures Nutritional Appearance: obese; Negative for cachectic HEENT Reports moist mucous membranes normocephalic and atraumatic; Negative for trauma Eyes PERRL Neck full ROM and supple Thyroid: Negative for tender Lymph Lymphatic: Negative for other Chest Wall inspection of chest normal and palpation of chest normal Chest: Negative for other Resp normal respiratory effort, no retractions and clear to auscultation bilaterally Effort and Inspection: Negative for pain with movement Auscultation: Negative for rales, rhonchi, wheezes or diminished lung sounds Cardio regular rate, regular rhythm, S1 normal heart sound, S2 normal heart sound and no murmurs Rate: Negative for bradycardia Rhythm: Negative for abnormal rhythm GI non-tender, non-distended and no masses Inspection: Negative for abdominal distention Auscultation: normoactive bowel sounds Palpation: soft; Negative for tender or guarding Back/Spine no CVA tenderness General Back: Negative for CVA tenderness Cervical Spine: Negative for cervical spine tenderness Thoracic Spine / Upper Back: Negative for thoracic spinal tenderness Extremity normal to inspection and full ROM Extremity Narrative: Except left proximal calf tenderness to palpation. No deficit. Achilles tendon intact. Full range of motion of the left hip, left knee, left ankle and foot with normal dorsi and plantar flexion. Normal DP pulse. Exam consistent with a left calf strain. General Extremety ED: Negative for cyanosis or edema General Extremity: Negative for cyanosis or edema Neuro oriented x3 and moves all extremities Sensorium / Orientation: alert, oriented to person, oriented to place and oriented to time; Negative for orientation impaired, confused, lethargic or stuporous Motor Exam: strength 5/5 throughout Psych mental status grossly normal Appearance: Negative for unkempt Mood & Affect: Negative for anxious Skin no wounds Lesions: no lesions MDM MDM MDM Narrative Medical decision making narrative: 52-year-old male history and exam are consistent with a left calf strain. Motrin for pain. Discharged home. Ice and elevate. Rest. Increase activity as tolerated. Follow-up if not proving. Discharge Plan Triage Chief Complaint: Lower Extremity Injury ED Provider: Ace Pathak Dx/Rx/DC Orders Clinical Impression: Strain of left calf muscle, History of seizure Instructions: ED Muscle Strain, Extremity Prescriptions: No Action loratadine [Allergy Relief (loratadine)] 10 mg tablet 10 mg PO DAILY PRN (Reason: allergy symptoms) Qty: 90 1RF (DME) Wrist Brace Misc See Rx Instructions .ROUTE .MEDSUPPLY Qty: 1 0RF Rx Instructions: Use as directed at bedtime to left wrist colchicine 0.6 mg capsule 0.6 mg PO BID ibuprofen 800 mg tablet 800 mg PO TID PRN (Reason: pain) Qty: 90 3RF Rx Instructions: Take with food topiramate 50 mg tablet 50 mg PO BID Qty: 60 4RF sumatriptan succinate 25 mg tablet See Rx Instructions PO .COMPLEX Qty: 9 0RF Dose Instruction: take 1 tab at onset of headache; if no relief may repeat 1 tab in 2hr; max = 4 tabs/day (24hr) PO Rx Instructions: take 1 tab at onset of headache; if no relief may repeat 1 tab in 2hr; max = 4 tabs/day (24hr) PO Primary Care Provider: Gretta Perez Referrals: Gretta Perez MD [Primary Care Provider] - 10-14 Days if not better Activity Restrictions/Additional Instructions: Ice and elevate your calf to decrease pain and swelling. Motrin and Tylenol for pain. Rest and increase activity as tolerated. Follow-up if not improving. Disposition Disposition: Home, Self Care
[2022-04-27] MEDS: Ibuprofen 600 MG Tablet PO (18:21)
== END 2022-04-27 18:23 | disposition home or self-care (01) ==
LOC: ED 18:20
PROVIDERS: Emergency Provider Emergency Medicine; PCP Internal Medicine; Visit Provider Emergency Medicine
DX: S86.112A Strain of other muscle(s) and tendon(s) of posterior muscle group at lower leg level, left leg, initial encounter (principal); G40.909 Epilepsy, unspecified, not intractable, without status epilepticus; E66.9 Obesity, unspecified; Z79.899 Other long term (current) drug therapy
CPT/HCPCS: 99283

== ENCOUNTER 2022-09-01 09:34 | Emergency (ER) | payer SELFPAY ==
[2022-09-01 09:35] VITALS: BP 154/71; PULSE 70; RESP 16; TEMP 36.6; O2SAT 98; BMI 36.9
--- NOTE | 2022-09-01 09:51 | RAD_ITS ---
EXAM: XR CHEST, 1 VIEW CLINICAL INDICATION: chest pain TECHNIQUE: Frontal view of the chest. This report was created using [employer] report generation technology. COMPARISON: None. FINDINGS: LUNGS AND PLEURAL SPACES: Pulmonary hypoinflation. The lungs are clear. No pneumothorax. No effusion. HEART: Unremarkable. Cardiac silhouette not enlarged. MEDIASTINUM: Central airways and mediastinal contour are unremarkable. BONES/JOINTS: Unremarkable. SOFT TISSUES: Unremarkable. RAD/Chest 1 View (Portable) IMPRESSION: Normal Limited inspiratory chest radiograph. Electronically Signed: Jeremías Gallo MD at 10:23 [facility] ,
[2022-09-01 10:06] LABS: Absolute Lymphocyte Count 1.08 X10^3/uL (0.83-4.51); Absolute Neutrophil Count 3.2 X10^3/uL (2.0-7.7); Basophil# 0.02 X10^3/uL; Basophil% 0.4 % (0-1); Eosinophil# 0.13 X10^3/uL; Eosinophils% 2.6 % (0-5); Hematocrit 42.8 % (40-54); Hemoglobin 14.6 g/dL (13.0-16.5); Lymphocyte # 1.08 X10^3/ul (0.83-4.51); Lymphocyte % 21.6 % (19-41); Mean Corp Hgb Conc 34.1 g/dL (32-36); Mean Corpuscular Hgb 29.4 pg (27.0-32.0); Mean Corpuscular Volume 86.3 fL (80-94); Mean Platelet Vol. 11.8 fl (6.2-12.0); Monocyte# 0.56 X10^3/uL; Monocyte% 11.2 % (0-10); NRBC Flagged by Analyzer 0 % (0-5); Neutrophil # 3.21 X10^3/uL (2.7-7.7); Platelet Count 192 K/mm3 (150-450); RBC Distribution Width CV 13.5 % (11.6-14.6); RBC Distribution Width SD 41.8 fl (35.1-43.9); Red Blood Count 4.96 M/mm3 (4.6-6.2)
[2022-09-01 10:15] VITALS: BP 128/77; PULSE 73; RESP 12; O2SAT 98; O2SAT 99
--- NOTE | 2022-09-01 10:17 | EX.ED.DYSGE1 ---
HPI History of Present Illness Chief Complaint: Chest Pain Narrative Narrative: 52-year-old male presents with multiple somatic complaints. He has past medical history of migraines, chronic headaches, stating has had a headache for the last 3 days. He usually takes ibuprofen but he has not taken any recently. He is also on Topamax for prophylaxis of his migraines. He denies any nausea or vomiting, no fevers but states he has had intermittent chills. He complains of lightheadedness and dizziness also that has been going on for a while. Standing does not necessarily make it worse. He also complains of a burning sensation in his chest. No diaphoresis or shortness of breath, no other symptoms. He states that he has life stressors at home. His boss at work called the squad today because of his lightheadedness, dizziness, and generalized weakness. Additional, he does state that he has been having midsternal to left-sided chest pain since Monday, over the last 2 days. He states he has a early coronary artery disease, and occasionally smokes. [facility] Medical History (Updated 09/01/22 @ 11:49 by Jeremías Barnes MD) Chronic headaches Seizures Sleep apnea Home Medications loratadine 10 mg tablet (Allergy Relief (loratadine)) 10 mg PO DAILY PRN allergy symptoms #90 tabs 07/10/19 [Rx Last Taken Unknown] arm brace (Wrist Brace) #1 ea 01/02/20 [Rx Last Taken Unknown] colchicine 0.6 mg capsule 0.6 mg PO BID 03/13/20 [History Last Taken Unknown] sumatriptan succinate 25 mg tablet See Rx Instructions PO .COMPLEX #9 tabs 04/21/20 [Rx Last Taken Unknown] ibuprofen 800 mg tablet 800 mg PO TID PRN pain #90 tabs 08/11/20 [Rx Last Taken Unknown] topiramate 50 mg tablet 50 mg PO BID #60 tabs 08/11/20 [Rx Last Taken Unknown] Allergy/AdvReac Type Severity Reaction Status Date / Time Gadolinium-MRI Contrast AdvReac Vomiting Verified 09/01/22 09:37 Medium Family History Father Sudden cardiac Mother Breast cancer Sister Kidney disease Grandmother Alcoholism Other Cervical cancer Colon cancer Surgical History History of hand surgery History of right knee surgery Social History Smoking Status: Current some day smoker tobacco type: cigarettes alcohol intake: never substance use type: does not use what type of physical activity do you participate in: walking frequency: daily duration: > 90 minutes/day ROS ROS ED ROS Narrative Constitutional: No fever, no chills. HEENT: No sore throat. No neck pain. No loss of vision. No rhinorrhea. Cardiovascular: Positive burning chest pain. No palpitations. No pedal edema. Respiratory: No cough, no shortness of breath. Abdominal: No abdominal pain. No nausea. No vomiting. Genitourinary: No dysuria. No hematuria. Musculoskeletal: No myalgias. No arthralgias. Neurologic: 3 days of migraine headaches. Positive dizziness. Positive lightheadedness. Skin: No rash. No change in color. Psychiatric: No depression. No anxiety. Positive stress outside of work. EXAM Physical Exam Narrative Exam Narrative: Afebrile. Vital signs noted. HEENT: Normocephalic. Atraumatic. PERRL, EOMI. Neck soft and supple. No point tenderness or step off. Cardiovascular: Regular rate and rhythm. No murmurs, rubs, or gallops appreciated. Respiratory: No tachypnea. Lungs clear to auscultation bilaterally. Gastrointestinal: Abdomen soft, nontender, with normoactive bowel sounds. No rebound or guarding. Neurological: Awake. Alert. Oriented x3. Nonfocal, nonlateralizing. Skin: No rash. Normal color. No pallor. Musculoskeletal: No pedal edema. Full range of motion extremities. Const Vital Signs: 09/01/22 09:35 09/01/22 10:15 09/01/22 10:15 Temperature 97.8 F Temperature Source Temporal Pulse Rate 70 73 Pulse Rate [Lying] Pulse Rate [Sitting (for 1 minute prior to obtaining)] Respiratory Rate 16 12 Respiratory Effort Blood Pressure 154/71 H 128/77 H Blood Pressure [Lying] Blood Pressure [Sitting (for 1 minute prior to obtaining)] Blood Pressure Mean 98 94 Blood Pressure Mean [Lying] Blood Pressure Mean [Sitting (for 1 minute prior to obtaining)] Pulse Ox 98 99 98 Oxygen Delivery Method Room Air Room Air Room Air 09/01/22 10:15 09/01/22 10:22 09/01/22 11:07 Temperature Temperature Source Pulse Rate 69 Pulse Rate [Lying] 63 Pulse Rate [Sitting (for 1 minute prior to obtaining)] 64 Respiratory Rate 17 Respiratory Effort Normal Non-Labored Blood Pressure 128/85 H Blood Pressure [Lying] 133/81 H Blood Pressure [Sitting (for 1 minute prior to obtaining)] 116/92 H Blood Pressure Mean 99 Blood Pressure Mean [Lying] 98 Blood Pressure Mean [Sitting (for 1 minute prior to obtaining)] 100 Pulse Ox 98 Oxygen Delivery Method Room Air MDM MDM MDM Narrative Medical decision making narrative: Nursing protocols have been entered. I will add orthostatics and a normal saline bolus of 1 L. Additionally, he was administered Toradol 30 mg intravenously for his headache. EKG interpreted by myself demonstrates normal sinus rhythm at 99 bpm without ectopy or acute ST changes. There is a right bundle branch block, but no current with which to compare. Chest x-ray interpreted by myself shows no acute process. CBC is grossly normal with a normal white count, normal hemoglobin of 14.6, hematocrit 42.8, platelet count 197. Electrolyte panel shows chloride slightly elevated at 108 which I think is nonspecific, glucose appropriately elevated at 120 with a normal anion gap of 7. Urinalysis is negative for infection. He was given Toradol for his headache. Of note, his high-sensitivity troponin is elevated at 86. He states he has not had a recent stress test. At this point in time, given the elevation of his enzymes I will discuss patient with the hospitalist for observation. I discussed the patient with Dr. Patten patient is in stable condition. Lab Data Attestation: I reviewed the patient's lab results. Labs: Laboratory Results - last 24 hr 09/01/22 09/01/22 09/01/22 09:45 09:45 10:47 WBC 5.0 RBC 4.96 Hgb 14.6 Hct 42.8 MCV 86.3 MCH 29.4 MCHC 34.1 RDW Std Deviation 41.8 RDW Coeff of Tomi 13.5 Plt Count 192 MPV 11.8 Immature Gran % (Auto) 0.200 Neut % (Auto) 64.0 Lymph % (Auto) 21.6 [place] % (Auto) 11.2 H Eos % (Auto) 2.6 Baso % (Auto) 0.4 Absolute Neuts (auto) 3.2 Absolute Lymphs (auto) 1.08 Nucleated RBC % 0 Sodium 141 Potassium 3.8 Chloride 108 H Carbon Dioxide 26.0 Anion Gap 7 BUN 15 Creatinine 1.18 Estim Creat Clear Calc 82.20 Est GFR (MDRD) Af Amer 84 Est GFR (MDRD) Non-Af 69 BUN/Creatinine Ratio 12.7 Glucose 120 H Calcium 9.5 Troponin I High Sens 86 H Urine Color Yellow Urine Clarity Clear Urine pH 5.0 Ur Specific [place] 1.025 Urine Protein 15 H Urine Glucose (UA) Normal Urine Ketones 5 H Urine Occult Blood 10 H Urine Nitrite Negative Urine Bilirubin Negative Urine Urobilinogen 1 H Ur Leukocyte Esterase Negative Urine RBC 0 SEEN Urine WBC 0 SEEN Ur Squamous Epith Cells 0 SEEN Urine Bacteria 0 SEEN Urine Mucus 0 SEEN Radiography Diagnostic Testing: Clinical Impression(s) from Imaging Studies Chest X-Ray 09/01/22 09:51 IMPRESSION: Normal Limited inspiratory chest radiograph. Electronically Signed: Jeremías Gallo MD at 10:23 EST , Discharge Plan Dx/Rx/DC Orders Clinical Impression: Chest pain, Elevated troponin, Headache, Lightheadedness Disposition Disposition: Acute Care [facility]
[2022-09-01 10:22] VITALS: BP 116/92; BP 133/81; PULSE 63; PULSE 64
[2022-09-01 10:32] LABS: Anion Gap 7 (5-15); BUN 15 mg/dL (7-18); BUN/Creat Ratio 12.7 RATIO (10-20); Calcium,Total 9.5 mg/dL (8.5-10.1); Chloride 108 mmol/L (98-107); Creatinine, Serum 1.18 mg/dL (0.70-1.30); EST Glomerular Filtration Rate 69 mL/min (>60); Est Glom Filt Rate - Afr Amer 84 mL/min (>60); Glucose 120 mg/dL (74-106); Potassium 3.8 mmol/L (3.5-5.1); Sodium Level 141 mmol/L (136-145); Troponin-I HS 86 pg/mL (3.0-78.0)
[2022-09-01] MEDS: Ketorolac 30 MG/ML Syringe IV (10:42)
[2022-09-01] MEDS: 0.9% Normal Saline 1,000 ML 999 ML IV (10:43)
[2022-09-01 10:52] LABS: Bacteria 0 SEEN /hpf (None Seen); Mucous, Urine 0 SEEN /hpf (<or=2+); Red Blood Cells-Urine 0 SEEN /hpf (0-5); Squamous Epithelial Cells - UA 0 SEEN /hpf (0-5); White Blood Cells 0 SEEN /hpf (0-5)
[2022-09-01 11:00] LABS: Color, Urine Yellow (Yellow); Glucose, Dipstick Normal (Normal); Ketone-Dipstick 5 mg/dl (Negative); Leukocyte Esterase-Dipstick Negative /ul (Negative); Nitrite-Dipstick Negative (Negative); Occult Blood-Urine 10 /ul (Negative); Protein-Dipstick 15 mg/dl (Negative); Specific Gravity, Urine 1.025 (1.002-1.030); Urine Bilirubin Dipstick Negative (Negative); Urine Clarity Clear (Clear); Urine Urobilinogen 1 mg/dl (Normal)
[2022-09-01 11:07] VITALS: BP 128/85; PULSE 69; RESP 17; O2SAT 98
--- NOTE | 2022-09-01 11:46 | HP.PCM.HOS_ITS ---
HPI - General General Date of Admission: 09/01/22 Date of Service: 09/01/22 Chief Complaint: Chest pain HPI Narrative BRYNN TAYLOR, is a 52 M with past medical history signal for chronic migraines, who presented with chest discomfort. Patient symptoms started whilst at work pain was located in the retrosternal region. In view of the p ersistent nature of symptoms patient presented to the emergency department. On further questioning patient denied any nausea no vomiting no shortness of breath he however did complain of feeling lightheaded. Initial EKG unremarkable however troponin was slightly elevatedAt 86. Admitted to a monitored bed for further evaluation [facility] Medical History Chronic headaches Seizures Sleep apnea Home Medications loratadine 10 mg tablet (Allergy Relief (loratadine)) 10 mg PO DAILY PRN allergy symptoms #90 tabs 07/10/19 [Rx Last Taken 08/31/22] arm brace (Wrist Brace) #1 ea 01/02/20 [Rx Last Taken Unknown] colchicine 0.6 mg capsule 0.6 mg PO BID GOUT 03/13/20 [History Last Taken 08/28/22] ibuprofen 800 mg tablet 800 mg PO TID PRN pain #90 tabs 08/11/20 [Rx Last Taken Unknown] topiramate 50 mg tablet 50 mg PO BID #60 tabs 08/11/20 [Rx Last Taken 08/30/22] sumatriptan succinate 25 mg tablet 25 mg PO DAILY PRN PRN MIGRANE 09/01/22 [History Last Taken Unknown] Allergy/AdvReac Type Severity Reaction Status Date / Time Gadolinium-MRI Contrast AdvReac Vomiting Verified 09/01/22 09:37 Medium Family History Father Sudden cardiac Mother Breast cancer Sister Kidney disease Grandmother Alcoholism Other Cervical cancer Colon cancer Surgical History History of hand surgery History of right knee surgery Social History Smoking Status: Current some day smoker tobacco type: cigarettes alcohol intake: never substance use type: does not use what type of physical activity do you participate in: walking frequency: daily duration: > 90 minutes/day ROS ROS Narrative GENERAL: denies fever, chills, night sweats, weight loss, anorexia HEENT: denies headache, sinus congestion, or drainage, dysphagia RESPIRATORY: denies cough, sputum production, CARDIAC: chest pain, palpitations, orthopnea, PND GASTROINTESTINAL: denies abdominal pain, nausea, vomiting, melena, GENITOURINARY: denies dysuria, urgency, frequency, heamaturia EXTREMITY: denies swelling MUSCULOSKELETAL: denies current joint pain or tenderness NEUROLOGIC: denies focal numbness, weakness, tingling HEMATOLOGIC: denies easy bruising and/or hemorrhage INTEGUMENT: denies rashes PSYCHIATRIC: denies suicidal or homicidal ideation Vital Signs Vital Signs Vital Signs: 09/01/22 09:35 09/01/22 10:15 09/01/22 10:15 Temperature 97.8 F Temperature Source Temporal Pulse Rate 70 73 Pulse Rate [Lying] Pulse Rate [Sitting (for 1 minute prior to obtaining)] Respiratory Rate 16 12 Respiratory Effort Blood Pressure 154/71 H 128/77 H Blood Pressure [Lying] Blood Pressure [Sitting (for 1 minute prior to obtaining)] Blood Pressure Mean 98 94 Blood Pressure Mean [Lying] Blood Pressure Mean [Sitting (for 1 minute prior to obtaining)] Pulse Ox 98 99 98 Oxygen Delivery Method Room Air Room Air Room Air 09/01/22 10:15 09/01/22 10:22 09/01/22 11:07 Temperature Temperature Source Pulse Rate 69 Pulse Rate [Lying] 63 Pulse Rate [Sitting (for 1 minute prior to obtaining)] 64 Respiratory Rate 17 Respiratory Effort Normal Non-Labored Blood Pressure 128/85 H Blood Pressure [Lying] 133/81 H Blood Pressure [Sitting (for 1 minute prior to obtaining)] 116/92 H Blood Pressure Mean 99 Blood Pressure Mean [Lying] 98 Blood Pressure Mean [Sitting (for 1 minute prior to obtaining)] 100 Pulse Ox 98 Oxygen Delivery Method Room Air Weight Weight: 123.6 kg Body Mass Index (BMI) 36.9 Results Lab / Micro Data Result Diagrams: 09/01/22 09:45 09/01/22 09:45 Labs: Laboratory Results - last 24 hr 09/01/22 09:45: WBC 5.0, RBC 4.96, Hgb 14.6, Hct 42.8, MCV 86.3, MCH 29.4, MCHC 34.1, RDW Std Deviation 41.8, RDW Coeff of Tomi 13.5, Plt Count 192, MPV 11.8, Immature Gran % (Auto) 0.200, Neut % (Auto) 64.0, Lymph % (Auto) 21.6, [place] % (Auto) 11.2 H, Eos % (Auto) 2.6, Baso % (Auto) 0.4, Absolute Neuts (auto) 3.2, Absolute Lymphs (auto) 1.08, Nucleated RBC % 0 09/01/22 09:45: Sodium 141, Potassium 3.8, Chloride 108 H, Carbon Dioxide 26.0, Anion Gap 7, BUN 15, Creatinine 1.18, Estim Creat Clear Calc 82.20, Est GFR (MDRD) Af Amer 84, Est GFR (MDRD) Non-Af 69, BUN/Creatinine Ratio 12.7, Glucose 120 H, Calcium 9.5, Troponin I High Sens 86 H 09/01/22 10:47: Urine Color Yellow, Urine Clarity Clear, Urine pH 5.0, Ur Specific [place] 1.025, Urine Protein 15 H, Urine Glucose (UA) Normal, Urine Ketones 5 H, Urine Occult Blood 10 H, Urine Nitrite Negative, Urine Bilirubin Negative, Urine Urobilinogen 1 H, Ur Leukocyte Esterase Negative, Urine RBC 0 SEEN, Urine WBC 0 SEEN, Ur Squamous Epith Cells 0 SEEN, Urine Bacteria 0 SEEN, Urine Mucus 0 SEEN Radiology Impression Chest X-Ray 09/01/22 09:51 IMPRESSION: Normal Limited inspiratory chest radiograph. Electronically Signed: Jeremías Gallo MD at 10:23 EST , Assessment & Plan Assessment/Plan (1) Chest pain: (2) Elevated troponin: PLAN: Plan Patient is a 52-year-old gentleman presented with chest pain 1. Chest pain ? With slightly elevated troponin patient has been admitted to a monitored bed. Did order serial cardiac enzymes to either rule in or rule out AK. Patient to undergo an exercise nuclear stress test once AK has been ruled out otherwise consultation will be placed to cardiology. As part of patient's management ordered a 2D echo 2. Chronic migraine headaches ? Patient is on topiramate did continue 3. Class II obesity with BMI of 37.0 ? Weight loss advised 4. Tobacco dependence - Counseled on cessation, offered nicotine patch for tobacco cravings 5. Obstructive sleep apnea ? History 6. DVT prophylaxis ? On Lovenox Did receive a call from the emergency department. After patient has been seen a nd evaluated he elected to sign out AGAINST MEDICAL ADVICE. Attempts made for patient to resend his decision proved futile. He was warned of the consequences including sudden cardiac as well as myocardial infarction he did understand Charges/Coding Visit Charges OBSV E&M: 41204 Initial observation care L3
--- NOTE | 2022-09-01 11:55 | NURSING ---
PCU OBS KITTOE CP, ELEVATED TROP
[2022-09-01] MEDS: Aspirin 325 MG Tablet PO (12:18)
[2022-09-01 12:21] VITALS: BP 133/98; PULSE 71; PULSE 73; RESP 17; TEMP 36.8; O2SAT 100
--- NOTE | 2022-09-01 12:25 | ED.RN ---
Patient informs this nurse that he can not stay due to no one to care for 5 year old daughter. This nurse explained the patient's diagnosis of NSTEMI and the importance of this admission and testing. [employer] at bedside also. Patient requesting time to make phone calls.
--- NOTE | 2022-09-01 13:05 | ED.RN ---
Patient states that he has to go. This nurse once again reiterated the importance of staying and the risks of leaving. MD notified and AMA forms signed. Patient states he understands the risks of leaving and to return to ED for any continued or increased symptoms.
[2022-09-01 13:08] LABS: Troponin-I HS 84 pg/mL (3.0-78.0)
--- NOTE | 2022-09-01 13:10 | CM.ED ---
SW Note TIMO Watkins and this press writer met with patient. Provided him with information regarding applying for medicaid and [facility] (financial packet provided). Patient said that he has a 5 year old and no one to care for the patient. SW provided emotional support and attempted to problem solve with patient regarding care for his 5 year old. Patient decided to leave even after the risks of his leaving were explained to him by the RN. Patient left AMA. Vivian MORENO
== END 2022-09-01 13:00 | disposition left against medical advice (07) ==
PROVIDERS: Emergency Provider Emergency Medicine; PCP Internal Medicine; Visit Provider Emergency Medicine
DX: R07.9 Chest pain, unspecified (principal); I45.10 Unspecified right bundle-branch block; R42 Dizziness and giddiness; R77.8 Other specified abnormalities of plasma proteins; R51.9 Headache, unspecified; Z53.29 Procedure and treatment not carried out because of patient's decision for other reasons
CPT/HCPCS: 71045; 80048; 81001; 84484; 85025; 93005; 96361; 96374; 99285; J7030; A4216